=== PATIENT | female | born 1995 | race Caucasian/White ===

== ENCOUNTER 2020-06-12 17:04 | Emergency (ER) | payer OTHER ==
[~2020-06-12] VITALS: Ht 162.6 cm; Wt 75.5 kg
[~2020-06-12 17:04] MED LIST: CEPHALEXIN500 MG PO; NORCO 5-325 TA1 EACH PO
[2020-06-12] MEDS ORDERED: BLEPH-105 ML OPTH (17:53)
== END 2020-06-12 18:11 | disposition home or self-care (01) ==
LOC: ED 17:04
DX: S05.02XA Injury of conjunctiva and corneal abrasion without foreign body, left eye, initial encounter (principal); W22.8XXA Striking against or struck by other objects, initial encounter; F17.200 Nicotine dependence, unspecified, uncomplicated
CPT/HCPCS: 99283

== ENCOUNTER 2022-10-18 21:47 | Emergency (ER) | payer OTHER ==
[~2022-10-18] VITALS: Ht 162.6 cm; Wt 72.4 kg
[~2022-10-18 21:47] MED LIST changes: +BLEPH-105 ML OPTH
[2022-10-18] MEDS ORDERED: ONDANSETRON ODT8 MG PO (22:46)
== END 2022-10-18 23:22 | disposition home or self-care (01) ==
LOC: ED 21:47
DX: S13.4XXA Sprain of ligaments of cervical spine, initial encounter (principal); V89.2XXA Person injured in unspecified motor-vehicle accident, traffic, initial encounter; F17.200 Nicotine dependence, unspecified, uncomplicated
CPT/HCPCS: 70450; 72125; A9270

== ENCOUNTER 2024-03-15 13:03 | Emergency (ER) | payer OTHER ==
[~2024-03-15 13:03] MED LIST changes: +ONDANSETRON ODT8 MG PO
[2024-03-15 14:40] VITALS: BP 139/79
== END 2024-03-15 14:40 | disposition home or self-care (01) ==
LOC: ED 13:03
DX: O99.893 Other specified diseases and conditions complicating puerperium (principal); R22.43 Localized swelling, mass and lump, lower limb, bilateral; F17.200 Nicotine dependence, unspecified, uncomplicated
CPT/HCPCS: 93970; 99283-25

== ENCOUNTER 2024-08-10 15:38 | Emergency (ER) | payer OTHER ==
[~2024-08-10] VITALS: Ht 162.6 cm; Wt 84.8 kg
[2024-08-10] MEDS ORDERED: PRENATA CHEWAB1 EACH PO (15:46)
[2024-08-10] MEDS ORDERED: ACETAMINOPHEN 325 MG TAB PO ONE (18:00)
[2024-08-10] MEDS ORDERED: HYDROCODON-ACE1 EA10 PO (18:24)
[2024-08-10 19:00] VITALS: BP 125/72
== END 2024-08-10 19:01 | disposition home or self-care (01) ==
LOC: ED 15:38
DX: S82.142A Displaced bicondylar fracture of left tibia, initial encounter for closed fracture (principal); F17.200 Nicotine dependence, unspecified, uncomplicated; V00.311A Fall from snowboard, initial encounter; Y93.23 Activity, snow (alpine) (downhill) skiing, snowboarding, sledding, tobogganing and snow tubing
CPT/HCPCS: 36415; 73560; 73590; 73700; 84703; 99284-25; A9270